=== PATIENT | male | born 2000 | race Caucasian/White ===

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

== ENCOUNTER 2019-03-22 23:42 | Inpatient (IN) | payer MEDICAID ==
[~2019-03-22] VITALS: Ht 185.4 cm; Wt 120.2 kg
[2019-03-22 23:58] VITALS: Ht 185.4 cm; Wt 120.2 kg
[2019-03-23 00:47] LABS: BASOPHIL % 0.1 % (0-2); PLATELET COUNT 264 x10^3mcL (130-400); RED CELL DISTRIBUTION WIDTH 12.9 % (11.5-14.5)
--- NOTE | 2019-03-23 00:47 | NUR ---
PT BIBA FOR 15 SEC SYNCOPAL EPISODE AT IN N OUT. PER PT FELT CRAMP IN RIGHT LEG, LEANED ON WALL TO STRETCH OUT CRAMP AND STS NEXT THING PT REMEMBERS IN WAKING UP ON THE FLOOR. PT STS HAVING SYNCOPAL EPISODES BEFORE, ONCE WHILE HE WAS POKED WITH A NEEDLE AND ONCE WHEN HE HIS HIS HARRIS ON A POLE. PT HAS SMALL LAC TO R EYE BROW AND TO RIGHT OF SCALP. PT AAO4, RESP E/U, NO DISTRESS. FATHER AT BEDSIDE.
[2019-03-23 00:53] LABS: CALCIUM 8.9 mg/dL (8.5-10.1); CARBON DIOXIDE 26.9 mmol/L (21-32); CHLORIDE SERUM 104 mmol/L (98-107); CREATININE SERUM 0.9 mg/dL (0.7-1.3); GFR1 > 60 mL/min; GLUCOSE SERUM 97 mg/dL (74-106); POTASSIUM SERUM 3.4 mmol/L (3.5-5.1); SODIUM SERUM 141 mmol/L (136-145)
[2019-03-23 00:55] LABS: ALBUMIN 4.2 g/dL (3.4-5.0); ALKALINE PHOSPHATASE 97 U/L (46-116); ALT/SGPT 76 U/L (16-63); AST/SGOT 32 U/L (15-37); BILIRUBIN TOTAL 1.06 mg/dL (0.20-1.00); TOTAL PROTEIN, SERUM 7.8 g/dL (6.4-8.2)
[2019-03-23 01:26] LABS: UA SPECIFIC GRAVITY 1.025 (1.005-1.035); microscopic required? YES; urine erythrocyte NEGATIVE (NEGATIVE)
--- NOTE | 2019-03-23 02:25 | NUR ---
REPORT CALLED TO OSMAN LOMBARDI FOR [facility] TO ASSUME PT CARE.
--- NOTE | 2019-03-23 02:30 | NUR ---
PT TRANSFERRED TO [facility] BY [facility] BY MYSELF AND DEVON EMT. PT ON NOTCHED BLADE LOADER FOR TRANSPORT. PT AOX4, RESP EVEN AND UNLABORED, NO ACUTE DISTRESS NOTED. PT AMBULATED FROM [facility] TO BED WITH STEADY GAIT AND PT WAS ACCEPTED FOR BEDSIDE HANDOFF BY [facility]LES LOMBARDI.
--- NOTE | 2019-03-23 02:46 | NUR ---
ADMITTED 18 YO MALE WITH HX OF SYCOPAL EPISODE RESULTING IN FALL,PT ARIVED FROM ED VIA [facility] ACCOMPANIED BY 2 NURSES AND HIS FATHER, PT IS A/0 X 4 DENIES MACKEY OR DIZZINESS AT THIS TIME, PT STATES THEY HAVE NO PAIN AT THIS TIME, PT WAS PLACED ON TELE MONITOR 24, NSR, PT WAS ORIENTED TO CALL LIGHT AND CONTROLS OF THE ROOM. IV LAC 18 GAUGE, CDI NO SIGNS OF REDNESS OR SWELLING SAFETY PRECAUTIONS IN PLACE WILL CONTINUE TO MONITOR.
[2019-03-23 02:59] VITALS: BP 116/58
[2019-03-23 03:28] LABS: MAGNESIUM 2.1 mg/dL (1.8-2.4); PHOSPHOROUS 4.6 mg/dL (2.5-4.9)
--- NOTE | 2019-03-23 04:00 | NUR ---
PT REQUESTING DARREL FLORENTINO ORDER FOR DIET ATTEMPTED TO CALL DR ANDREA , NO ANSWER. WILL CONTINUE TO ATTEMPT TO CONTACT
--- NOTE | 2019-03-23 04:20 | NUR ---
CONTACTED DR ORTIZ, SAID SHE WOULD PUT IN DIET ORDER.
--- NOTE | 2019-03-23 04:25 | NUR ---
BROUGHT PT CHADD OT ALERT AND ORIENTED X 4, MOTHER AT BEDSIDE, PT HAS NO SIGNS OF ACUTE DISTRESS, DENIES PAIN AT THIS TIME, SAFETY PRECAUTIONS IN PLACE WILL CONTINUE TO MONITOR
--- NOTE | 2019-03-23 05:13 | NUR ---
PT RESTED COMFORTABLY THROUGH THE NIGHT, HAD NO EPISODES OF ACUTE DISTRESS OR PAIN THROUGH THE NIGHT, PT WAS A/0X4 THROUGHOUT SHIFT AND HAD NO COMPLAINTS OF MACKEY OR DIZZINESS, SAFETY PRECAUTIONS WERE MAINTAINED, WILL CONTINUE TO MONITOR AND ENDORSE CARE TO DAY SHIFT RN
[2019-03-23 06:08] VITALS: BP 111/57
[2019-03-23 06:57] LABS: CALCIUM 8.8 mg/dL (8.5-10.1); CARBON DIOXIDE 24.1 mmol/L (21-32); CHLORIDE SERUM 103 mmol/L (98-107); CREATININE SERUM 0.7 mg/dL (0.7-1.3); GFR1 > 60 mL/min; GLUCOSE SERUM 119 mg/dL (74-106); POTASSIUM SERUM 3.8 mmol/L (3.5-5.1); SODIUM SERUM 139 mmol/L (136-145)
[2019-03-23 07:08] LABS: BASOPHIL % 0.2 % (0-2); PLATELET COUNT 276 x10^3mcL (130-400); RED CELL DISTRIBUTION WIDTH 13.4 % (11.5-14.5)
--- NOTE | 2019-03-23 07:25 | NUR ---
RECEIVED PT. IN BED A/A/O X3. NO SOB, NO N/V NOTED. PT. DENIES ANY PAIN AT THIS TIME. PT. DENIES ANY DIZZINESS AT THE PRESENT TIME. NS RUNNING AT 100 CC/HR VIA IV SITE AT L AC. SCD TO BLE MAINTAINED. BED IN LOW POS., CALL LIGHT WITHIN REACH. SIDE RAILS UP X3.
[2019-03-23 09:24] VITALS: BP 112/47
--- NOTE | 2019-03-23 10:02 | NUR ---
Discount pharmacy card and list to low cost medical clinics given to patient by Isaac Aleman.
[2019-03-23 13:28] VITALS: BP 120/65
--- NOTE | 2019-03-23 15:57 | NUR ---
D/C HOME INSTRUCTIONS GIVEN TO PT. WHO VERBALIZED UNDERSTANDING OF INSTRUCTIONS. IV H/L TO L AC REMOVED. TELE. MONITOR #24 REMOVED AND RETURNED TO TELE. MONITOR STATION. PHOTOGRAPH OF LACERATION TO R EYEBROW TAKEN PRIOR TO DISCHARGE.
--- NOTE | 2019-03-23 16:18 | NUR ---
PT. IS BEING DISCHARGED IN STABLE CONDITION. ALL BELONGINGS SENT HOME WITH PT. UPON DISCHARGE.
[2019-03-23 17:10] LABS: AMPHETAMINE QUAL UR NONE DETECTED (See below)
== END 2019-03-23 16:18 | disposition home or self-care (01) | DRG 48 ==
LOC: ED 23:42 → DU 03-23 02:02
PROVIDERS: Emergency Medicine; Family Medicine; ADMIT Internal Medicine
PROC: 0HQ1XZZ Repair Face Skin, External Approach (ICD-10-PCS; principal; 2019-03-23)
DX: G90.9 Disorder of the autonomic nervous system, unspecified (principal); N17.0 Acute kidney failure with tubular necrosis; S01.111A Laceration without foreign body of right eyelid and periocular area, initial encounter; R25.2 Cramp and spasm; E87.6 Hypokalemia; R74.0 Nonspecific elevation of levels of transaminase and lactic acid dehydrogenase [LDH]; R80.9 Proteinuria, unspecified; E66.9 Obesity, unspecified; Z68.35 Body mass index [BMI] 35.0-35.9, adult; W18.39XA Other fall on same level, initial encounter; Y92.511 Restaurant or cafe as the place of occurrence of the external cause
CPT/HCPCS: 90715; J2001; J7030; Q0092